=== PATIENT | female | born 1980 | race Caucasian/White ===

== ENCOUNTER → 2017-08-26 | Outpatient (CLI) | payer OTHER | LOC: FIMAGING 09:21 | PROVIDERS: ATTEND Obstetrics & Gynecology | DX: O09.512 Supervision of elderly primigravida, second trimester (principal); O35.8XX0 Maternal care for other (suspected) fetal abnormality and damage, not applicable or unspecified; Z3A.20 20 weeks gestation of pregnancy; Z20.828 Contact with and (suspected) exposure to other viral communicable diseases ==

== ENCOUNTER → 2017-11-04 | Outpatient (CLI) | payer OTHER | LOC: FIMAGING 08:44 | PROVIDERS: ATTEND Obstetrics & Gynecology | DX: O09.513 Supervision of elderly primigravida, third trimester (principal); Z3A.30 30 weeks gestation of pregnancy ==

== ENCOUNTER 2017-12-07 08:27 | Emergency (ER) | payer OTHER ==
[2017-12-07 08:36] VITALS: BP 117/77; PULSE 75; RESP 16; TEMP 97.5; O2SAT 96
--- NOTE | 2017-12-07 08:58 | EDPHY ---
H & P Stated Complaint: R eye pain Time Seen by Provider: 12/07/17 08:57 Source: Patient Exam Limitations: No limitations - Personal History LMP (Females 10-55): EDC: 01/13/18 Current Tetanus Diphtheria and Acellular Pertussis (TDAP): Yes - Medical/Surgical History Hx Asthma: No Hx Chronic Respiratory Disease: No Hx Diabetes: No Hx Cardiac Disease: No Hx Renal Disease: No Hx Cirrhosis: No Hx Alcoholism: No Hx HIV/AIDS: No Hx Splenectomy or Spleen Trauma: No Other PMH: right eye ulcer, - Social History Smoking Status: Never smoked Constitutional: Initial Vital Signs Temperature (C) 36.4 C 12/07/17 08:33 Heart Rate 75 12/07/17 08:33 Respiratory Rate 16 12/07/17 08:33 Blood Pressure 117/77 12/07/17 08:33 O2 Sat (%) 96 12/07/17 08:33 O2 Delivery Mode Room Air Allergies/Adverse Reactions: No Known Allergies Allergy (Unverified 09/12/15 03:57) Home Medications: Medication Instructions Recorded Hydrocodone/APAP 5/325 [Doniphan 1 - 2 tab PO Q4-6PRN PRN #20 tab 09/12/15 5/325 (*)] prednisoLONE ACET 0.12% [Pred Mild 2 drops OP QID #1 opht.btl 12/07/17 0.12%] Medical Decision Making ED Course/Re-evaluation: CHIEF COMPLAINT: Eye pain HISTORY OF PRESENT ILLNESS: The patient is a 37-year-old female, currently 8 months , presenting with acute eye pain that started 1 week ago. The patient took out her contacts and immediately felt like she left a piece of a contact in her eye. She woke up with right eye pain and wore her glasses. The next day she developed photophobia. She was seen at an Urgent Care and diagnosed with pink eye. She was started on Gentamicin, but has not seen any improvement over the past 4 days. Her right eye feels dry in one spot. She denies discharge. She has not worn her contacts since onset of pain. REVIEW OF SYSTEMS: A 10 point review of systems was performed and is negative with the exception of the elements mentioned in the history of present illness. PHYSICAL EXAM: HR, BP, O2 Sat, RR. Temp noted General Appearance: Alert, well hydrated, appropriate, and non-toxic appearing. Head: Atraumatic without scalp tenderness or obvious injury Visual Acuity: Noted from Nurse's notes. Pupils: PERRLA, EOMI, no nystagmus, no trauma, Injection. Lids: No edema or swelling. Lid margins are injected. Skin: No proptosis, no periorbital erythema or swelling, no vesicles. Conjunctivae: Injected, not icteric, no discharge. Cornea: Exam with slit lamp and fluorescein shows superficial punctate keratopathy, no abrasion. Anterior chamber: Normal, no hyphema or hypopyon. Posterior Chamber: No papilledema or hemorrhages. Past medical history: 8 months . Past surgical history: Denies. Family history: Noncontributory. Social history: DIFFERENTIAL DIAGNOSIS: Includes but is not limited to superficial punctate keratopathy, corneal abrasion, conjunctivitis. MEDICAL DECISION MAKING: The patient presents with right eye irritation for the past week. She was started on Gentamicin and has not seen any improvement. She continues to have photophobia and eye pain. On fluoroscopic examination she has superficial punctate keratopathy likely secondary to the Gentamicin. Corneal and conjunctival irritation, no sign of infection. There is no ulcer or corneal abrasion. I will start the patient on [] and have her follow up with the infection control coordinator Program Developer or her Motor Adjuster. Departure - Departure Disposition: Home, Routine, Self-Care Clinical Impression: Superficial keratitis Qualifiers: Laterality: right Qualified Code(s): H16.101 - Unspecified superficial keratitis, right eye Condition: Good Instructions: Keratitis (ED) Additional Instructions: Use the Prednisolone eye drops as directed. Stop using the Gentamicin drops. You have been referred to the infection control coordinator Program Developer. You should call tomorrow to arrange follow up or follow up with your Motor Adjuster. Referrals: Giselle Perez MD [Primary Care Provider] - As per Instructions Prem David MD [Medical Doctor] - As per Instructions (Ophthalmology) Prescriptions: prednisoLONE ACET 0.12% [Pred Mild 0.12%] 2 drops OP QID #1 opht.btl Report Scribed for: Silvestre Whitley Report Scribed by: Dyan Miranda Date of Report: 12/07/17 Time of Report: 09:11
[2017-12-07] MEDS ORDERED: PROPARACAINE 0.5% 15 ML OPHT DROP ONE (09:08)
[2017-12-07] MEDS ORDERED: FLUORESCEIN SODIUM 1 MG STRIP OP ONE (09:08)
== END 2017-12-07 09:20 | disposition home or self-care (01) ==
DX: O99.89 Other specified diseases and conditions complicating pregnancy, childbirth and the puerperium (principal); H16.101 Unspecified superficial keratitis, right eye; Z3A.00 Weeks of gestation of pregnancy not specified

== ENCOUNTER → 2017-12-16 | Outpatient (CLI) | payer OTHER | LOC: FIMAGING 14:30 | PROVIDERS: ATTEND Obstetrics & Gynecology | DX: O09.513 Supervision of elderly primigravida, third trimester (principal); O35.8XX0 Maternal care for other (suspected) fetal abnormality and damage, not applicable or unspecified; Z3A.36 36 weeks gestation of pregnancy ==

== ENCOUNTER 2018-01-07 15:13 | Inpatient (IN) | payer OTHER ==
[2018-01-07] MEDS ORDERED: EPSOM SALT 454 GM TP PRN (15:30)
[2018-01-07] MEDS ORDERED: TERBUTALINE SULFATE 1 MG/ML VIAL IV PRN (15:30)
[2018-01-07] MEDS ORDERED: OXYTOCIN 20 UNIT in LR 1,000 ML IV PRN (15:30)
[2018-01-07] MEDS ORDERED: LR 1,000 ML IV PRN (15:30)
[2018-01-07] MEDS ORDERED: MISOPROSTOL 200 MCG TAB PR PRN (15:30)
[2018-01-07] MEDS ORDERED: OLIVE OIL 118 ML BTL MISC PRN (15:30)
[2018-01-07] MEDS ORDERED: LIDOCAINE 1% 300 MG/30 ML SDV ONE (17:04)
[2018-01-07] MEDS ORDERED: OXYTOCIN 10 UNIT/ML VIAL ONE (17:05)
[2018-01-07] MEDS ORDERED: OLIVE OIL 118 ML BTL ONE (17:05)
[2018-01-07] MEDS ORDERED: TERBUTALINE SULFATE 1 MG/ML VIAL ONE (17:05)
[2018-01-07] MEDS ORDERED: AMMONIA AROMATIC 1 EACH AMP IH ONE (17:05)
[2018-01-07 17:17] LABS: PLATELET COUNT 184 10^3/uL (150-400)
--- NOTE | 2018-01-07 20:09 | PREANESOB ---
Obstetric Pre-Anesthesia Info - General Info Proposed Procedure: Labor and delivery probably with pitocin. : 1 Para: 0 HERVE: 01/13/18 Gestational Age: 39 week(s) and 1 day(s) - Info Status: Full Term Monitors: External FHR Baseline (bpm): 130 FHR Pattern: Reassuring - Labor Status Cervical Dilation per last OB SVE: 1 Pitocin: Planned Indications for Labor Analgesia: Induction of Labor, Pain Control Labor Epidural: Proposed Anesthesia ROS: Back surgery for scoliosis. Allergies/Adverse Reactions: Allergy/AdvReac Type Severity Reaction Status Date / Time No Known Allergies Allergy Unverified 09/12/15 03:57 Home Medications: Medication Instructions Recorded Herbals/Supplements -Info Only 01/07/18 Iron 01/07/18 Vit27&Calcium/Iron/FA 1 each PO DAILY 01/07/18 [ Rx 1 Tablet (RX)] Visit Medications: Generic Name Dose Route Start Last Admin Trade Name Freq PRN Reason Stop Dose Admin Lactated Ringer's 1,000 mls @ 0 mls/hr 01/07/18 15:30 Lr IV 01/08/18 15:29 PRN PRN SEE PROTOCOL CONDITIONS Protocol Per Protocol Oxytocin 20 unit/ Lactated 1,002 mls @ 150 mls/hr 01/07/18 15:30 Ringer's IV PRN PRN Post- bleeding Ibuprofen 600 mg 01/07/18 15:30 Motrin PO 07/06/18 15:29 Q6HRS PRN post , inflammation Magnesium Sulfate 454 gm 01/07/18 15:30 Epsom Salt TP 07/06/18 15:29 Q1H PRN perineal discomfort Misoprostol 800 - 1,000 mcg 01/07/18 15:30 Cytotec VT ONCE PRN Vaginal Atony/Bleeding Foster Oil 118 ml 01/07/18 15:30 Sweet Oil MISC 07/06/18 15:29 ONCE PRN perineal massage Terbutaline Sulfate 0.25 mg 01/07/18 15:30 Brethine IV 07/06/18 15:29 ONCE PRN Tachysystole Discontinued Medications Generic Name Dose Route Start Last Admin Trade Name Freq PRN Reason Stop Dose Admin Ammonia (Aromatic Spirit) Confirm 01/07/18 17:05 Ammonia Aromatic Administered 01/07/18 17:06 Dose 1 each IH .STK-MED ONE Lidocaine HCl Confirm 01/07/18 17:04 Lidocaine Hcl 1% Administered 01/07/18 17:05 Dose 300 mg .ROUTE .STK-MED ONE Foster Oil Confirm 01/07/18 17:05 Sweet Oil Administered 01/07/18 17:06 Dose 118 ml .ROUTE .STK-MED ONE Oxytocin Confirm 01/07/18 17:05 Pitocin Administered 01/07/18 17:06 Dose 30 unit .ROUTE .STK-MED ONE Terbutaline Sulfate Confirm 01/07/18 17:05 Brethine Administered 01/07/18 17:06 Dose 1 mg .ROUTE .STK-MED ONE - Anesthesia History Response to Local Anesthetics: Normal Anesthesia & Operative History: No Prior Problems Family Anesthesia History: Negative - Social History Substance Use/Abuse: Denies - Vital Signs Blood Pressure: 109/64 Heart Rate: 75 Height/Weight (Nursing): Height 167.64 cm Weight 72.121 kg - Focused Exam Neck exam: FROM Mallampati Score: Class 1 Mouth exam: normal dental/mouth exam Pulmonary: no respiratory distress Cardiovascular: regular rate and rhythym Labs: 01/07/18 16:45 Patient ABO/Rh O POSITIVE 01/07/18 16:45 - Plan Anesthetic Plan: Epidural Consent Signed and on Chart: Yes Patient/Guardian Understands and Agrees to Plan: Yes
[2018-01-07] MEDS ORDERED: LR 500 ML IV PRN (20:40)
[2018-01-07] MEDS ORDERED: OXYTOCIN 30 UNIT in NS 500 ML IV SCH (20:45)
--- NOTE | 2018-01-07 21:50 | GHP ---
[f rep st] PREOP HISTORY AND PHYSICAL DATE OF ADMISSION: 01/07/2018 HISTORY UPON ADMISSION: The patient is a 37-year-old G1, P0, at 39 weeks and 1 day with an estimated due date of 01/13/2018, who presented to Labor and Delivery for slightly decreased movement af ter spontaneous rupture of membranes at approximately 11:45 a.m. The patient was noting irregular co ntractions after an acupuncture treatment this morning; however, very mild. The patient had spontane ous rupture with clear fluid and has had a negative GBS culture. After presentation to Labor and [facility], the monitoring was a category 1 tracing. The patient opted to stay, awaiting onset of e nacho labor. She opted to have a repeat acupuncture treatment, which was performed at approximately 5 :00 p.m. The patient has been hopeful for spontaneous onset of contractions, but really has not had any real contraction pattern to speak of since admission. A thorough discussion with the patient abo ut options as to getting Pitocin for augmentation versus oral Cytotec versus continuing to wait and d o acupuncture and nipple stimulation. The patient has intended on having an epidural, and she had a consultation with Dr. Octavio Tavarez about epidural placement and the potential variabilities, as th e patient has had back surgery and has an existing yane in her spine. The patient is not interested i n epidural placement at this time, but might consider replacement prior to dosing of the epidural to avoid having to have it placed during intense labor. The patient ate dinner and now is requesting Pi tocin stimulation of labor. COURSE: The patient has transferred to [facility] at 32 weeks' gestation from [facility]. She had thorough care with their office prior to transfer. The patient had be en noted to have dilation of the right renal pelvis and had evaluation with Maternal- Medi cine. A followup ultrasound at 31 weeks' gestation had shown resolution of the dilated renal pelvis, and both were measuring normal. It was recommended to have a 4-week followup, and this was performe d on December 17. The right renal pelvis at that time was severely dilated, with a measurement of 1 2 mm. The specialist recommended that the pediatricians get imaging early after delivery and referra l to a urologist if the dilation persists. They recommended a right ultrasound 2-4 weeks after . The followup measurements were also performed, and the estimated weight was the 78th percent ile. There was a fundal placenta and normal fluid noted. The patient had had Zika virus exposure in March of 2017, and there was no evidence of Zika effects on the anatomy. The patient has a hist ory of anxiety, but did not have significant issues through the and had not initiated any m edications. LABORATORIES: Maternal blood type O-positive, with negative antibody screen. RPR nonreacti ve. Rubella immune. Hepatitis B surface antigen negative. HIV negative. Cystic fibrosis, spinal m uscular atrophy, and Fragile X all negative. Urinalysis and culture negative. Pap smear negative. Verifi testing was negative. MSAFP was negative. One-hour Glucola was elevated, with a normal 3-mo r GTT. Hematocrit showed mild anemia at 34%. GBS culture testing was negative. PAST MEDICAL HISTORY: Positive HPV with a colposcopy in the past from abnormal Pap smears. 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 History of scoliosis with a "yane in her back," but no grayson gical reports or recent followup. History of anxiety, treated with Lexapro and Ativan in the past, b ut no recent medication. PAST SURGICAL HISTORY: Surgery at age 13 due to the scoliosis, with a yane placed. ALLERGIES: The patient has no known drug allergies. CURRENT MEDICATIONS: Only vitamins, omega-3, DHEA, and iron supplement daily. SOCIAL HISTORY: The patient is and lives with her . The patient is a nonsmoker. No alcohol or drug use. PHYSICAL EXAMINATION: GENERAL: Upon admission, the patient is a well-developed, well-nourished whit e female, in no physical distress. VITAL SIGNS: The patient is afebrile and vital signs normal. Se e nursing documentation for full details. LUNGS: Clear to auscultation bilaterally. CARDIOVASCULAR : Regular rate and rhythm. ABDOMEN: heart tone monitoring revealed a category 1 tracing with a baseline in the 130s, with good variability and accelerations. No decelerations noted. Rare cont ractions noted. PELVIC: Exam has been deferred since the patient has been at the hospital. She is continuing to have abundant leakage of clear fluid. The patient had a pelvic exam at [facility] this morning prior to rupture of membranes and was fingertip dilated with a long cervix, with v ertex presentation. EXTREMITIES: Nontender. No edema. ASSESSMENT: Intrauterine at 39 weeks and 1 day, spontaneous rupture of membranes at approx imately 11:45 a.m. Group B streptococcus negative. No current labor. PLAN: The patient has opted to have Pitocin induction. She will have epidural placement when ready. /[id number]/MODL
[2018-01-07] MEDS ORDERED: BUPIVACAINE 0.25% 30 ML SDV ONE (23:40)
[2018-01-07] MEDS ORDERED: PHENYLEPHRINE HCL 100 MCG/ML SYR ONE (23:41)
[2018-01-07] MEDS ORDERED: fentaNYL 100 MCG/2 ML INJ ONE (23:41)
--- NOTE | 2018-01-07 23:47 | OBPROG ---
Labor Progress Note Assessment/Plan: Assessment: IUP at 39w1d SROM approx 12 hrs GBS neg pitocin induction scoliosis with yane in back Plan: pt now feeling increased pain and requesting ALDAIR 01/07/18 23:43 Subjective/Intrapartum Course: 01/07/18 23:46 pt has been on low pitocin and gradually feeling increasing discomfort - now rates pain 7/10 and request ALDAIR. cx 1-2//-1 Objective: 01/07/18 16:45 Patient ABO/Rh O POSITIVE 01/07/18 16:45 Temp Pulse Resp BP Pulse Ox 75 109/64 01/07/18 20:09 01/07/18 20:09 - SVE Dilation (cm): 2 Effacement (%): 90 Station: -1 Membranes: SROM Amniotic Fluid Color: Clear - Contraction Pattern Assessment Current Contraction Pattern: Regular (q 2-3 min on 5 mu/min pit - now reduced to 2 mu/min until comf with ALDAIR) - FHR Assessment Talavera FHR (bpm): 130 FHR Pattern Variability: Moderate FHR Category: 1 Oxytocin Orders Assessment - Pre-Induction/Augmentation Assessment Gestational Age: 39 week(s) and 1 day(s) ICD10 Worksheet Patient Problems: Problems Problem Status Onset Prolonged spontaneous rupture of membranes Acute - ICD10 Problem Qualifiers (1) Prolonged spontaneous rupture of membranes
[2018-01-08] MEDS ORDERED: FENT2MCG/ML&BUP0.1% 1 EA, fentaNYL 200 MCG, BUPIVACAINE 0.5% 20 ML in NS 100 ML IV SCH (00:30)
[2018-01-08] MEDS ORDERED: ONDANSETRON 4 MG/2 ML VIAL IVP PRN (00:37)
[2018-01-08] MEDS ORDERED: PHENYLEPHRINE HCL 100 MCG/ML SYR IVP PRN (00:37)
[2018-01-08] MEDS ORDERED: FENT2MCG/ML&BUP0.1% 1 EA, fentaNYL 200 MCG, BUPIVACAINE 0.5% 20 ML in NS 100 ML EP SCH (01:00)
[2018-01-08] MEDS ORDERED: LR 500 ML IV SCH (01:00)
[2018-01-08] MEDS ORDERED: fentaNYL 2MCG/ML/BUP 0.1% RTU 100 ML EP SCH (01:00)
[2018-01-08] MEDS ORDERED: NS EP SCH (07:00)
[2018-01-08] MEDS ORDERED: FENTANYL EP SCH (07:00)
[2018-01-08] MEDS ORDERED: BUPIVACAINE 0.5% EP SCH (07:00)
[2018-01-08] MEDS ORDERED: OLIVE OIL 118 ML BTL ONE (07:20)
[2018-01-08] MEDS ORDERED: LIDOCAINE 1% 300 MG/30 ML SDV ONE (07:20)
[2018-01-08] MEDS ORDERED: ceFAZolin 2 GM/SWFI 2 GM/20 ML SYR IVP ONE (10:04)
[2018-01-08] MEDS ORDERED: HYDROCORTISONE 0.5% CREAM TP PRN (11:52)
[2018-01-08] MEDS ORDERED: SIMETHICONE 80 MG TAB CHEW PO PRN (11:52)
[2018-01-08] MEDS ORDERED: ACETAMINOPHEN 325 MG TAB PO PRN (11:52)
[2018-01-08] MEDS: IBUPROFEN 600 MG TAB PO PRN ×3 (11:59→23:40)
--- NOTE | 2018-01-08 12:01 | OBDEL ---
Info Type: Vaginal Presentation at Delivery: Vertex L&D Analgesia/Anesthesia Type: Epidural GBS+: No Intrapartum Medications: Generic Name Dose Route Start Last Admin Trade Name Freq PRN Reason Stop Dose Admin Lactated Ringer's 1,000 mls @ 0 mls/hr 01/07/18 15:30 01/07/18 20:56 Lr IV 01/08/18 15:29 1,000 mls PRN PRN Administration SEE PROTOCOL CONDITIONS Protocol Per Protocol Oxytocin 30 unit/ Sodium 503 mls @ 0 mls/hr 01/07/18 20:45 01/07/18 20:56 Chloride IV 07/06/18 20:44 503 mls CONT KHALIF Administration Protocol Per Protocol Discontinued Medications Generic Name Dose Route Start Last Admin Trade Name Freq PRN Reason Stop Dose Admin Cefazolin Sodium 2 gm in 20 mls @ 200 mls/hr 01/08/18 10:04 01/08/18 10:17 Cefazolin Syringe IVP 01/08/18 10:09 20 mls ONCALL ONE Administration Protocol - Hospital Course Intrapartum: 01/07/18 23:46 pt has been on low pitocin and gradually feeling increasing discomfort - now rates pain 7/10 and request ADLAIR. cx 1-2/90/-1 Vaginal Delivery - Delivery Provider Delivery Physician/CNM: Lucretia Rocha Proctoring Provider: Radha Shultz - Labor and Delivery Onset of Contractions Date: 01/07/18 Onset of Contractions Time: 21:45 Onset of Contractions Type: Augmented Rupture of Membranes Date: 01/07/18 Rupture of Membranes Time: 11:45 Rupture of Membranes Type: Spontaneous Amniotic Fluid Color: Clear Dilation Complete Date: 01/08/18 Dilation Complete Time: 05:43 Placenta Delivery Date: 01/08/18 Placenta Delivery Time: 10:04 (manual removal, complete and intact. US confirmed no retained POCs. ) Total Hours of Labor: 12 Laceration: 1st Degree Repair: 3-0, Vicryl Vaginal Sponge Count Correct: Yes Vaginal Needle Count Correct: Yes Data HERVE: 01/13/18 Gestational Age: 39 week(s) and 2 day(s) Talavera Delivery Date: 01/08/18 Delivery Time: 09:03 Sex of Infant: Female Score (1 Min): 8 Score (5 Min): 9 ICD10 Worksheet Patient Problems: Problems Problem Status Onset First degree perineal laceration Acute Prolonged spontaneous rupture of membranes Acute Retained placenta Acute (spontaneous vaginal delivery) Acute - ICD10 Problem Qualifiers (1) (spontaneous vaginal delivery) (2) First degree perineal laceration (3) Retained placenta
[2018-01-08] MEDS: HYDROCODONE/APAP 5/325 TAB PO PRN ×3 (15:18→23:41)
[2018-01-09] MEDS: HYDROCODONE/APAP 5/325 TAB PO PRN ×5 (04:16→22:41)
[2018-01-09] MEDS: IBUPROFEN 600 MG TAB PO PRN ×3 (08:40→22:41)
[2018-01-09] MEDS: DOCUSATE SODIUM 100 MG CAP PO PRN ×2 (08:40→21:17)
--- NOTE | 2018-01-09 13:44 | OBPP ---
Progress Note Assessment/Plan: PPD1 s/p requiring manual extraction of placenta. EBL 400cc. * Doing great, no acute issues. Routine cares. * Received one dose of Ancef after delivery due to manual extraction, afebrile overnight. No further doses ordered. * going okay - working with . * Renal pyelectasis antepartum - Urology/MFM recommended renal US 2-4 wks after delivery. * O pos, Rubella immune. * Likely dc home tomorrow. Subjective/ Course: Doing well, pain well controlled, minimal lochia, no F/C. a little miya overnight, but working with now. Objective: 01/07/18 16:45 Patient ABO/Rh O POSITIVE 01/07/18 16:45 Temp Pulse Resp BP Pulse Ox 36.2 C 68 15 103/67 97 01/09/18 08:05 01/09/18 08:05 01/09/18 08:05 01/09/18 08:05 01/09/18 08:05 Uterine Position/Fundal Height: At Umbilicus Uterine Tone: Firm Physical Exam - Physical Exam Neuro/Psych: alert, normal mood/affect
[2018-01-09 20:22] VITALS: RESP 16
[2018-01-10] MEDS: DOCUSATE SODIUM 100 MG CAP PO PRN (08:34)
[2018-01-10] MEDS: IBUPROFEN 600 MG TAB PO PRN (08:35)
[2018-01-10 09:19] VITALS: BP 123/76; PULSE 52; TEMP 98; O2SAT 100
--- NOTE | 2018-01-10 11:34 | OBPP ---
Progress Note Assessment/Plan: Assessment: PPD 2 s/p with manual extraction of placenta Plan: D/C home 01/07/18 23:43 01/10/18 11:29 Subjective/ Course: Doing well, pain well controlled, minimal lochia, no F/C. a little miya overnight, but working with now. 01/10/18 11:34 Pt doing well. Working on BF - also pumping. urinating fine. bld is light. mod cramps but [place] with ibu - used Geismar last noc but doesn't feel needed anymore. Objective: 01/07/18 16:45 Patient ABO/Rh O POSITIVE 01/07/18 16:45 Temp Pulse Resp BP Pulse Ox 36.7 C 52 L 16 123/76 H 100 01/10/18 08:00 01/10/18 08:00 01/10/18 08:00 01/10/18 08:00 01/10/18 08:00 Uterine Position/Fundal Height: Umbilicus -1 Uterine Tone: Firm Physical Exam - Physical Exam Abdomen: non-tender, soft, other (FF at umb -1) Extremities: non-tender, pedal edema (minimal) Skin: normal color, warm/dry Neuro/Psych: alert, normal mood/affect
--- NOTE | 2018-01-10 11:39 | OBGCSDC ---
General Delivery Information - General Info : 1 Para: 1 Abortions: 0 Type: Vaginal L&D Analgesia/Anesthesia Type: Epidural Admission Date: 01/07/18 Labs: Patient ABO/Rh O POSITIVE 01/07/18 16:45 Hct 32.6 % (38.0-47.0) L 01/07/18 16:45 - Hospital Course Intrapartum: 01/07/18 23:46 pt has been on low pitocin and gradually feeling increasing discomfort - now rates pain 7/10 and request ALDAIR. cx 1-2//-1 : Doing well, pain well controlled, minimal lochia, no F/C. a little miya overnight, but working with now. 01/10/18 11:34 Pt doing well. Working on BF - also pumping. urinating fine. bld is light. mod cramps but [place] with ibu - used Taylor last noc but doesn't feel needed anymore. Vaginal - Delivery Provider Delivery Physician/CNM: Lucretia Rocha - Diagnosis Labor: Augmented Rupture of Membranes Type: Spontaneous Amniotic Fluid Color: Clear Laceration: 1st Degree Repair: 3-0, Vicryl Sunset Data HERVE: 01/13/18 Gestational Age: 39 week(s) and 4 day(s) Talavera Delivery Date: 01/08/18 Delivery Time: 09:03 Sex of : Female Score (1 Min): 8 Score (5 Min): 9 Discharge Information - Discharge Information Condition: Good Instruction/Follow Up: Four Weeks, Six Weeks
== END 2018-01-10 12:00 | disposition home or self-care (01) | DRG 767 ==
LOC: FLD 15:13 → FOB 01-08 13:12
PROVIDERS: ADMIT Obstetrics & Gynecology; ATTEND Obstetrics & Gynecology
PROC: 3E033VJ Introduction of Other Hormone into Peripheral Vein, Percutaneous Approach (ICD-10-PCS; 2018-01-07)
PROC: 10E0XZZ Delivery of Products of Conception, External Approach (ICD-10-PCS; principal; 2018-01-08)
PROC: 0HQ9XZZ Repair Perineum Skin, External Approach (ICD-10-PCS; principal; 2018-01-08)
PROC: 10D17Z9 Manual Extraction of Products of Conception, Retained, Via Natural or Artificial Opening (ICD-10-PCS; principal; 2018-01-08)
DX: O42.02 Full-term premature rupture of membranes, onset of labor within 24 hours of rupture (principal); O72.0 Third-stage hemorrhage; O70.0 First degree perineal laceration during delivery; Z98.890 Other specified postprocedural states; Z3A.39 39 weeks gestation of pregnancy; Z37.0 Single live birth
CPT/HCPCS: J0690; J2370; J2590; J3010; J3105

== ENCOUNTER → 2018-09-29 | Outpatient (CLI) | payer OTHER | LOC: FIMAGING 09:25 | PROVIDERS: ATTEND Obstetrics & Gynecology | DX: O09.521 Supervision of elderly multigravida, first trimester (principal); Z3A.12 12 weeks gestation of pregnancy ==

== ENCOUNTER → 2018-11-19 | Outpatient (CLI) | payer OTHER | LOC: FIMAGING 07:32 | PROVIDERS: ATTEND Obstetrics & Gynecology | DX: O09.522 Supervision of elderly multigravida, second trimester (principal) ==

== ENCOUNTER → 2019-01-07 | Outpatient (CLI) | payer OTHER | LOC: FIMAGING 09:22 | PROVIDERS: ATTEND Obstetrics & Gynecology | DX: O09.522 Supervision of elderly multigravida, second trimester (principal); Q27.0 Congenital absence and hypoplasia of umbilical artery; Z3A.26 26 weeks gestation of pregnancy ==

== ENCOUNTER → 2019-02-18 | Outpatient (CLI) | payer OTHER | LOC: FIMAGING 09:15 | PROVIDERS: ATTEND Obstetrics & Gynecology | DX: O09.523 Supervision of elderly multigravida, third trimester (principal); Z3A.32 32 weeks gestation of pregnancy ==

== ENCOUNTER 2019-03-23 07:45 | Day surgery (SDC) | payer OTHER ==
--- NOTE | 2019-03-22 18:34 | PDGENHP ---
History and Physical - Chief Complaint Transverse presentation - here for external cephalic version attempt - History of Present Illness 38 at 37w2d (on 03/23/19) by LMP c/w 7 wk US, with transverse presentation in office last week and today in office (03/22/19). Desires attempt at External Cephalic Version, after thorough counseling B/R/A in office today. FOC = Abilio Update - today, 03/23/19 - last ate before midnight, but had water on her way here - last at 0630. Preg c/b: AMA > 40: neg NIPT and MFM US single umbilical artery: normal growth, 52%ile at 36 wk short preg interval: 12/2017 c/b retained placenta Anemia: hct 32 at 28wk, 36 at 34 wk, on iron hx anxiety, and pp anxiety with hx of meds in past labs: O pos Rub Imm GBS neg Rest of std labs wnl POB: 01/[birth year] at 39w2d, female 6#11oz, epidural, 1s deg lac, retained placenta - "Flora" at [facility] with CNMs Goldstein History Information - Allergies/Home Medication List Allergies/Adverse Reactions: No Known Allergies Allergy (Unverified 09/12/15 03:57) Home Medications: Iron 1 cap PO DAILY 01/07/18 [Last Taken 01/06/18] Vit27&Calcium/Iron/FA [] 1 each PO DAILY 01/07/18 [Last Taken 01/06/18] I have personally reviewed and updated: family history, medical history, social history, surgical history Past Medical History: scoliosis - but had epidural with P1. Hx anxiety - was on Lexapro and Ativan in past - Surgical History Additional surgical history: yane for scoliosis age 13. wisdom teeth - Family History Positive for: cancer (MGM- brain, PGF - lung), diabetes type II (MGM) Additional family history: MAunt - DM1, thyroid d/o. MCousin - DM1. mat side - alcoholism. M - depression - Social History Smoking Status: Former smoker Alcohol Use: None Drug Use: None Review of Systems Review of Systems: ROS: 10pt was reviewed & negative except for what was stated in HPI & below Physical Exam Physical Exam: US confirms vertex maternal left upper quadrant, with back down. Subjectively normal amount of fluid. 36.6 16 64 106/72 FHR 135 reactive, Cat 1 toco - no contractions Constitutional: no apparent distress, appears nourished Eyes: PERRL, anicteric sclera Ears, Nose, Mouth, Throat: moist mucous membranes, hearing normal, ears appear normal Cardiovascular: regular rate and rhythym, no murmur, rub, or gallop Respiratory: no respiratory distress, no rales or rhonchi, clear to auscultation Gastrointestinal: normoactive bowel sounds, other (fundus soft, NT, c/w term ) Genitourinary: no bladder fullness Skin: warm, normal color Musculoskeletal: full muscle strength Neurologic: AAOx3, sensation intact bilaterally Psychiatric: interacting appropriately Lymph, Heme, Immunologic: no cervical LAD Assessment & Plan Assessment: 40 at 37w2d with transverse, back down presentation this morning. Will attempt External Cephalic Version. Written informed consent obtained. Shyanne Franco MD, FACOG
[~2019-03-23 07:45] MED LIST: OLIVE OIL 118 ML BTL MISC ONE; TERBUTALINE SULFATE 1 MG/ML VIAL IV ONE; TERBUTALINE SULFATE 1 MG/ML VIAL ONE
[2019-03-23 08:19] LABS: PLATELET COUNT 175 10^3/uL (150-400)
--- NOTE | 2019-03-23 08:59 | POSTOPPROG ---
Post Op Note Date of Operation: 03/23/19 Surgeon: Shyanne Franco Nursing Unit Coordinator: Lucina Ramires [facility] Anesthesiologist: circulation tender Pre-op Diagnosis: transverse presentation Post-op Diagnosis: cephalic presentation Indication: transverse presentation at 37w2d, multip Procedure: External cephalic version Findings: converted to cephalic, with hand presenting Inf/Abcess present in the surg proc area at time of surgery?: No Total fluids administered: none Complications: Complications: none Procedure: Written informed consent obtained. 0.25mg terbutaline IV given. FHR confirmed to be 150 immediately prior to procedure. Pressure placed on abdomen and fetus rotated in a backward somersault. Successful with first attempt. arm and fluid is presenting, then vertex. Pt sat up and will be monitored for at least on hour and then position rechecked prior to discharge home. Shyanne Franco MD, FACOG
--- NOTE | 2019-03-23 10:30 | SOAPPROG ---
SOAP Progress Note Assessment/Plan: Assessment: 40 at 37w2d, s/p ECV - successful. Currently compound cephalic/foot presentation. Reassuring monitoring. DC home, reviewed kick counts and labor precautions. Keep appt in office in 2 days - NST and fluid check (recheck position then too) . Shyanne Franco MD, FACOG 03/23/19 10:26 Subjective: Pt comfortable. NO contractions, LOF, or VB. + FM. Objective: Laboratory Results 03/23/19 07:30 FHR 140 reactive, Cat 1 toco - no contractions US - compound cephalic presentation - vertex and foot - fetus appears piked with buttocks in maternal right upper quadrant currently. gen - pleasant, nad - Time Spent With Patient Time Spent With Patient: 10 MIN - Pending Discharge Pending Discharge Within 24 Hours: Yes Pending Discharge Within 48 Hours: Yes Pending Discharge Date: 03/24/19 Pending Discharge Time: 11:00 ICD10 Worksheet Patient Problems: Problems Problem Status Onset First degree perineal laceration Acute Prolonged spontaneous rupture of membranes Acute Retained placenta Acute (spontaneous vaginal delivery) Acute manual extraction of placenta Acute
--- NOTE | 2019-04-06 20:01 | OBDEL ---
Info Type: Vaginal Presentation at Delivery: Vertex L&D Analgesia/Anesthesia Type: Epidural GBS+: No Intrapartum Medications: Discontinued Medications Generic Name Dose Route Start Last Admin Trade Name Flynn PRN Reason Stop Dose Admin Terbutaline Sulfate 0.25 mg 03/23/19 07:43 03/23/19 08:30 Brethine IV 03/23/19 07:44 0.25 mg ONCALL ONE Administration Indications for Delivery: Elective Vaginal Delivery - Delivery Provider Delivery Physician/CNM: Shyanne Franco - Labor and Delivery Onset of Contractions Date: 04/06/19 Onset of Contractions Time: 16:50 Onset of Contractions Type: Induced Rupture of Membranes Date: 04/06/19 Rupture of Membranes Time: 16:50 Rupture of Membranes Type: Artificial Amniotic Fluid Color: Clear Dilation Complete Date: 04/06/19 Dilation Complete Time: 19:29 Placenta Delivery Date: 04/06/19 Placenta Delivery Time: 19:46 Total Hours of Labor: 2 Non-surgical Procedures: Amniotomy Laceration: Other (Specify) (superficial abrasions, hemostatic, no repair indicated) Vaginal Sponge Count Correct: Yes Vaginal Needle Count Correct: Yes Vaginal Sweep Performed: Yes EBL: 300 Delivery Events: None Delivery Comment: Elective induction of labor with pitocin, then AROM, epidural, then became completely dilated about 2.5 hours after AROM and 2 hours after epidural placement. Pushed with 3 contractions, with delivery of vertex, ELHAM, over intact perineum. No nuchal cord. Bulb suctioned on the perineum. No dystocia noted with easy delivery of body and baby went right to maternal abdomen at 1942. Cord clamping was delayed for just over 1 minute. Cord clamped and cut. Placenta delivered spontaneously at 1946 and appeared complete and intact. Inspection revealed a very superficial left periurethral abrasion and superficial perineum abrasion, both hemostatic, so no repair indicated. Fundal massage performed, and clots removed from lower uterine segment. Fundus firm. EBL 300. Infant and patient left in room stable with RN. Shyanne Franco MD, FACOG - Medications Labor Augmentation/Induction Methods Used: Pitocin Labor Augmentation/Induction Indication: Elective Operative Report - Delivery Surgeon: Shyanne Franco Data HERVE: 04/11/19 Gestational Age: 39 week(s) and 2 day(s) Talavera Delivery Date: 04/06/19 Delivery Time: 19:42 ("[place]") Sex of Infant: Male Score (1 Min): 8 Score (5 Min): 9 Shoulder Dystocia Time Head Delivered: 19:42 Time Body Delivered: 19:42 ICD10 Worksheet Patient Problems: Problems Problem Status Onset Encounter for elective induction of labor Acute First degree perineal laceration Acute Multigravida of advanced maternal age Acute Oligohydramnios in third trimester Acute atony of uterus with hemorrhage Acute Prolonged spontaneous rupture of membranes Acute Retained placenta Acute S/P dilatation and curettage Acute (spontaneous vaginal delivery) Acute Spontaneous vaginal delivery Acute manual extraction of placenta Acute - ICD10 Problem Qualifiers (1) Encounter for elective induction of labor (2) Spontaneous vaginal delivery
== END 2019-03-23 10:30 | disposition home or self-care (01) ==
LOC: FOBOP 07:45
PROVIDERS: ATTEND Hospitalist
DX: O32.1XX0 Maternal care for breech presentation, not applicable or unspecified (principal); Z3A.37 37 weeks gestation of pregnancy
CPT/HCPCS: J3105

== ENCOUNTER → 2019-03-23 | Day surgery (SDC) | payer OTHER | LOC: FOBOP 06:40 ==

== ENCOUNTER 2019-04-01 16:09 | Inpatient (IN) | payer OTHER ==
[2019-04-01] MEDS ORDERED: OLIVE OIL 118 ML BTL MISC PRN (18:07)
[2019-04-01] MEDS ORDERED: OXYTOCIN/RINGERS LACTATE 1,000 ML IV PRN (18:07)
[2019-04-01] MEDS ORDERED: LR 1,000 ML IV PRN (18:07)
[2019-04-01] MEDS ORDERED: IBUPROFEN 600 MG TAB PO PRN (18:07)
[2019-04-01] MEDS ORDERED: MISOPROSTOL 200 MCG TAB PR PRN (18:07)
[2019-04-01] MEDS ORDERED: LIDOCAINE 1% 300 MG/30 ML SDV SC PRN (18:07)
[2019-04-01] MEDS ORDERED: EPSOM SALT 454 GM TP PRN (18:07)
[2019-04-01 18:32] LABS: PLATELET COUNT 209 10^3/uL (150-400)
[2019-04-01] MEDS ORDERED: LIDOCAINE 1% 300 MG/30 ML SDV ONE (19:07)
[2019-04-01] MEDS ORDERED: TERBUTALINE SULFATE 1 MG/ML VIAL ONE (19:08)
[2019-04-01] MEDS ORDERED: OLIVE OIL 118 ML BTL MISC ONE (19:08)
[2019-04-01] MEDS ORDERED: AMMONIA AROMATIC 1 EACH AMP IH ONE (19:08)
[2019-04-01] MEDS ORDERED: MISOPROSTOL 200 MCG TAB ONE (19:08)
[2019-04-01] MEDS ORDERED: OXYTOCIN 10 UNIT/ML VIAL ONE (19:08)
--- NOTE | 2019-04-01 19:26 | PDGENHP ---
History and Physical - Chief Complaint IOL for oligohydramnios - History of Present Illness 38 at 38w3d by LMP c/w 7wk US - here for IOL secondary to oligohydramnios. Was seen in office for regular monitoring for AMA > 40 status, and MVP today = 1.9cm and JANET = 3.7cm, cephalic. Good FM, no VB, no LOF. Minimal contractions. NO ssx preeclampsia. : Gaurax Preg c/b: AMA > 40: neg NIPT and MFM US single umbilical artery: normal growth, 52%ile at 36 wk short preg interval: 12/2017 c/b retained placenta Anemia: hct 32 at 28wk, 36 at 34 wk, on iron hx anxiety, and pp anxiety with hx of meds in past labs: O pos Rub Imm GBS neg Rest of std labs wnl POB: [birth year] at 39w2d, female 6#11oz, epidural, 1s deg lac, retained placenta - "Flora" at [facility] with Agustina Goldstein History Information - Allergies/Home Medication List Allergies/Adverse Reactions: No Known Allergies Allergy (Unverified 09/12/15 03:57) Home Medications: Iron 1 cap PO DAILY 01/07/18 [Last Taken 01/06/18] Vit27&Calcium/Iron/FA [] 1 each PO DAILY 01/07/18 [Last Taken 01/06/18] I have personally reviewed and updated: family history, medical history, social history, surgical history Past Medical History: scoliosis - but had epidural with P1. Hx anxiety - was on Lexapro and Ativan in past - Surgical History Additional surgical history: yane for scoliosis age 13. wisdom teeth - Family History Positive for: cancer (MGM- brain, PGF - lung), diabetes type II (MGM) Additional family history: MAunt - DM1, thyroid d/o. MCousin - DM1. mat side - alcoholism. M - depression - Social History Smoking Status: Former smoker Alcohol Use: None Drug Use: None Additional social history: to [place]. Currently [facility] Review of Systems Review of Systems: ROS: 10pt was reviewed & negative except for what was stated in HPI & below Physical Exam Physical Exam: 36.8 16 73 111/68 FHR 135 reactive, Cat 1 toco - irreg ctxns Constitutional: no apparent distress, appears nourished, not in pain Eyes: PERRL, anicteric sclera, EOMI Ears, Nose, Mouth, Throat: moist mucous membranes, hearing normal, ears appear normal Cardiovascular: regular rate and rhythym Respiratory: no respiratory distress, no rales or rhonchi Gastrointestinal: other (gravid, NT) Genitourinary: no bladder fullness Skin: warm, normal color Musculoskeletal: full muscle strength, no muscle tenderness Neurologic: AAOx3 Psychiatric: interacting appropriately, not anxious Lab Data & Imaging Review 04/01/19 18:00 WBC 7.90 10^3/uL (3.80-9.50) 04/01/19 18:00 RBC 3.81 10^6/uL (4.18-5.33) L 04/01/19 18:00 Hgb 12.7 g/dL (12.6-16.3) 04/01/19 18:00 Hct 36.6 % (38.0-47.0) L 04/01/19 18:00 MCV 96.1 fL (81.5-99.8) 04/01/19 18:00 MCH 33.3 pg (27.9-34.1) 04/01/19 18:00 MCHC 34.7 g/dL (32.4-36.7) 04/01/19 18:00 RDW 12.7 % (11.5-15.2) 04/01/19 18:00 Plt Count 209 10^3/uL (150-400) 04/01/19 18:00 MPV 10.6 fL (8.7-11.7) 04/01/19 18:00 Neut % (Auto) 66.0 % (39.3-74.2) 04/01/19 18:00 Lymph % (Auto) 26.3 % (15.0-45.0) 04/01/19 18:00 [place] % (Auto) 6.6 % (4.5-13.0) 04/01/19 18:00 Eos % (Auto) 0.4 % (0.6-7.6) L 04/01/19 18:00 Baso % (Auto) 0.3 % (0.3-1.7) 04/01/19 18:00 Nucleat RBC Rel Count 0.0 % (0.0-0.2) 04/01/19 18:00 Absolute Neuts (auto) 5.22 10^3/uL (1.70-6.50) 04/01/19 18:00 Absolute Lymphs (auto) 2.08 10^3/uL (1.00-3.00) 04/01/19 18:00 Absolute Monos (auto) 0.52 10^3/uL (0.30-0.80) 04/01/19 18:00 Absolute Eos (auto) 0.03 10^3/uL (0.03-0.40) 04/01/19 18:00 Absolute Basos (auto) 0.02 10^3/uL (0.02-0.10) 04/01/19 18:00 Absolute Nucleated RBC 0.00 10^3/uL (0-0.01) 04/01/19 18:00 Immature Gran % 0.4 % (0.0-1.1) 04/01/19 18:00 Immature Gran # 0.03 10^3/uL (0.00-0.10) 04/01/19 18:00 Patient ABO/Rh O POSITIVE 04/01/19 18:00 Antibody Screen NEGATIVE 04/01/19 18:00 Assessment & Plan Assessment: 38 at 38w4d with oligohydramnios, multiparous and favorable cervix. Will start IOL with pitocin. B/R/A of pitocin discussed. EFW 3200gm, cephalic. Shyanne Franco MD, FACOG
[2019-04-01] MEDS ORDERED: LR 500 ML IV PRN (19:46)
[2019-04-01] MEDS ORDERED: OXYTOCIN/RINGERS LACTATE 500 ML IV SCH (20:00)
[2019-04-01] MEDS ORDERED: BUPIVACAINE 0.5% 30 ML SDV ONE (21:18)
[2019-04-01] MEDS ORDERED: fentaNYL 100 MCG/2 ML INJ ONE (21:18)
[2019-04-01] MEDS ORDERED: PHENYLEPHRINE HCL 100 MCG/ML SYR ONE (21:19)
[2019-04-01] MEDS ORDERED: fentaNYL 2MCG/ML/BUP 0.1% RTU 100 ML BAG EP ONE (21:19)
[2019-04-01] MEDS ORDERED: PHENYLEPHRINE HCL 100 MCG/ML SYR IVP PRN (22:10)
[2019-04-01] MEDS ORDERED: ONDANSETRON 4 MG/2 ML VIAL IVP PRN (22:10)
[2019-04-01] MEDS ORDERED: METOCLOPRAMIDE 10 MG/2 ML VIAL IVP PRN (22:10)
--- NOTE | 2019-04-01 22:15 | PDANEPAE ---
ANE Past Medical History - Pulmonary History Hx Sleep Apnea: No - Endocrine History Hx Diabetes: No - Chronic Pain History Chronic Pain: No ANE Review of Systems Review of Systems: ANE Patient History - Allergies Allergies/Adverse Reactions: No Known Allergies Allergy (Unverified 09/12/15 03:57) - Home Medications Home Medications: Iron 1 cap PO DAILY 01/07/18 [Last Taken 01/06/18] Vit27&Calcium/Iron/FA [] 1 each PO DAILY 01/07/18 [Last Taken 01/06/18] - Smoking Hx Smoking Status: Former smoker - Alcohol Use Alcohol Use: None ANE Labs/Vital Signs - Labs Result Diagrams: 04/01/19 18:00 - Vital Signs Height: 167.64 cm Weight: 70.307 kg ANE Physical Exam - Airway Neck exam: FROM Mallampati Score: Class 1 Mouth exam: normal dental/mouth exam - Pulmonary Pulmonary: no respiratory distress - Cardiovascular Cardiovascular: regular rate and rhythym - ASA Status ASA Status: II ANE Anesthesia Plan Anesthesia Plan: epidural Urgent/Emergent Case: Shanice estevez completed preop but documented later for safe timely pt care
[2019-04-01] MEDS ORDERED: LR 500 ML IV SCH (22:30)
[2019-04-01] MEDS ORDERED: fentaNYL 2MCG/ML/BUP 0.1% RTU 100 ML EP SCH (22:30)
--- NOTE | 2019-04-02 00:15 | OBPROG ---
Labor Progress Note Assessment/Plan: Assessment: 38 at 38w5d, undergoing IOL for oligohydramnios. Comfortable with epidural. AROM just performed. Continue pitocin. Anticipate vag delivery. Shyanne Franco FACOG 04/02/19 00:12 Subjective/Intrapartum Course: Pt comfortable with epidural. 04/02/19 00:15 Objective: 04/01/19 18:00 Patient ABO/Rh O POSITIVE 04/01/19 18:00 35.8 52 82/47 gen - pleasant, NAD SVE- 3.5 / 80 / -2 BBOW - AROM performed - clear fluid - SVE Dilation (cm): 3 Effacement (%): 80 Station: -2 Membranes: AROM Amniotic Fluid Color: Clear - Contraction Pattern Assessment Current Contraction Pattern: Regular - FHR Assessment Tala[place]a FHR (bpm): 135 FHR Pattern Variability: Moderate FHR Category: 1 - Procedures Non-surgical Procedures: Amniotomy (clear) Oxytocin Orders Assessment - Pre-Induction/Augmentation Assessment Gestational Age: 38 week(s) and 4 day(s) ICD10 Worksheet Patient Problems: Problems Problem Status Onset Multigravida of advanced maternal age Acute Oligohydramnios in third trimester Acute First degree perineal laceration Acute Prolonged spontaneous rupture of membranes Acute Retained placenta Acute (spontaneous vaginal delivery) Acute manual extraction of placenta Acute - ICD10 Problem Qualifiers (1) Oligohydramnios in third trimester (2) Multigravida of advanced maternal age
[2019-04-02] MEDS ORDERED: ceFAZolin 2 GM/DEXTROSE 100 ML IV ONE (05:30)
--- NOTE | 2019-04-02 06:42 | OBDEL ---
Info Type: Vaginal Presentation at Delivery: Vertex L&D Analgesia/Anesthesia Type: Epidural GBS+: No Intrapartum Medications: Generic Name Dose Route Start Last Admin Trade Name Freq PRN Reason Stop Dose Admin Lactated Ringer's 1,000 mls @ 0 mls/hr 04/01/19 18:07 04/01/19 19:58 Lr IV 04/02/19 18:06 1,000 mls PRN PRN Administration SEE PROTOCOL CONDITIONS Protocol Per Protocol Oxytocin/Lactated Ringer's 500 mls @ 0 mls/hr 04/01/19 20:00 04/01/19 19:58 Pitocin 30 Units/Lr (Premix) IV 09/28/19 19:59 500 mls CONT KHALIF Administration Protocol Per Protocol Discontinued Medications Generic Name Dose Route Start Last Admin Trade Name Freq PRN Reason Stop Dose Admin Cefazolin Sodium/Dextrose 100 mls @ 200 mls/hr 04/02/19 05:30 04/02/19 05:59 Ancef IV 04/02/19 05:59 100 mls ONCALL ONE Administration - Hospital Course Intrapartum: Pt comfortable with epidural. 04/02/19 00:15 Indications for Delivery: Oligohydramnios (MVP 1.9cm, JANET 3.cm) Vaginal Delivery - Delivery Provider Delivery Physician/CNM: Shyanne Franco - Labor and Delivery Onset of Contractions Date: 04/01/19 Onset of Contractions Time: 21:30 Onset of Contractions Type: Induced Rupture of Membranes Date: 04/02/19 Rupture of Membranes Time: 00:05 Rupture of Membranes Type: Artificial Amniotic Fluid Color: Clear Dilation Complete Date: 04/02/19 Dilation Complete Time: 03:52 Placenta Delivery Date: 04/02/19 Placenta Delivery Time: 05:01 Total Hours of Labor: 7 Non-surgical Procedures: Amniotomy (clear) Laceration: 2nd Degree Repair: 2-0, 3-0, Vicryl Vaginal Needle Count Correct: Yes Vaginal Sweep Performed: Yes EBL: 900 Delivery Events: Retained Placenta Delivery Comment: Pitocin IOL secondary to oligohydramnios. Epidural placed. AROM performed when 3.5cm dilated. Complete dilation at 0352. Pushed for < 30 minutes. over intact perineum, ELHAM presentation at 0425. NO signs of dystocia. No nuchal cord noted. Easy delivery of body and baby placed on maternal abdomen. Cord clamping was delayed x 1 min. Cord then cut and clamped and Cord blood obtained, in addition to cord blood collection for CBR. Small second degree laceration identified and repaired with 3.0 Vicryl. Gentle traction on the cord avulsed the cord. The placenta was than manually removed after the pt self bolusing her epidural. This was challenging as the plane of tissue separation was not obvious and the placenta was quite sticky. The majority of the placenta was removed intact, but US revealed large fragments of placenta still present in the fundus. Numerous attempts of manual removal were made. Sharp curettage with a Julio Cesar's curette was performed under US guidance. Numerous passes were made. Pt became momentarily hypotensive 70s/40s. IV fluid bolus was given. 2 gm of Ancef given IV. Radha Shultz CNM, called to assist with US guidance. 2 more passes with the Julio Cesar's curette, and the endometrial stripe was thin and bleeding was minimal. 1000mcg of misoprostil was placed rectally. Infant was left stable in room with patient, pt's and RN. EBL 900mg. - Medications Labor Augmentation/Induction Methods Used: Pitocin Labor Augmentation/Induction Indication: Other (Specify) (oligohydramnios) Data HERVE: 04/11/19 Gestational Age: 38 week(s) and 5 day(s) Talavera Delivery Date: 04/02/19 Delivery Time: 04:25 Sex of Infant: Female [place] Weight (gm): 2680 g (Leatha) Score (1 Min): 8 (5#13oz) Score (5 Min): 9 ICD10 Worksheet Patient Problems: Problems Problem Status Onset Multigravida of advanced maternal age Acute Oligohydramnios in third trimester Acute atony of uterus with hemorrhage Acute S/P dilatation and curettage Acute First degree perineal laceration Acute Prolonged spontaneous rupture of membranes Acute Retained placenta Acute (spontaneous vaginal delivery) Acute manual extraction of placenta Acute - ICD10 Problem Qualifiers (1) Oligohydramnios in third trimester (2) Multigravida of advanced maternal age Qualifiers: Trimester: third trimester Qualified Code(s): O09.523 - Supervision of elderly multigravida, third trimester (3) S/P dilatation and curettage (4) atony of uterus with hemorrhage
[2019-04-02] MEDS ORDERED: HYDROCORTISONE 0.5% CREAM TP PRN (07:41)
[2019-04-02] MEDS ORDERED: SIMETHICONE 80 MG TAB CHEW PO PRN (07:41)
--- NOTE | 2019-04-02 09:20 | OBPP ---
Progress Note Assessment/Plan: Assessment: 38 yo now , PPD0 s/p complicated by retained placenta (requiring manual extraction and sharp curettage) and PPH (900cc). - Will check Hct in the AM, routine cares for now. - Encouraged aggressive PO hydration, regular diet. - Feels fine otherwise, minimal lochia/bleeding. - Rh pos, Rubella immune. JM Subjective/ Course: Stopped in to see Iraida this AM around Noon. She was quite lightheaded and nearly fainted on the toilet shortly after delivery - but past few hours have been much better. Pain controlled, taking in some water and food, feeling better. BF going well. Objective: 04/01/19 18:00 Patient ABO/Rh O POSITIVE 04/01/19 18:00
[2019-04-02] MEDS: ACETAMINOPHEN 325 MG TAB PO PRN ×2 (13:16→19:25)
[2019-04-02] MEDS: IBUPROFEN 600 MG TAB PO PRN ×2 (13:16→19:25)
[2019-04-02] MEDS: DOCUSATE SODIUM 100 MG CAP PO PRN (19:25)
[2019-04-03] MEDS: ACETAMINOPHEN 325 MG TAB PO PRN ×4 (00:37→19:41)
[2019-04-03] MEDS: IBUPROFEN 600 MG TAB PO PRN ×4 (00:38→19:41)
--- NOTE | 2019-04-03 10:08 | OBPP ---
Progress Note Assessment/Plan: Assessment: ppd# 1 s/p with manual extraction and currettage of uterus for retained placenta breast feeding anemia rh +/RI/GBS - Plan: 04/03/19 10:05 Subjective/ Course: Stopped in to see Iraida this AM around Noon. She was quite lightheaded and nearly fainted on the toilet shortly after delivery - but past few hours have been much better. Pain controlled, taking in some water and food, feeling better. BF going well. 04/03/19 10:06 patient is doing well. pain is well controlled. no further episodes of lightheadeness or dizziness. normal lochia. working on breast feeding. is sore but doing well. ambulating voiding without difficulty. denies headache or changes in vision. Objective: 04/03/19 05:20 Patient ABO/Rh O POSITIVE 04/01/19 18:00 Temp Pulse Resp BP Pulse Ox 36.7 C 73 14 87/58 L 97 04/03/19 09:10 04/03/19 09:10 04/03/19 09:10 04/03/19 09:10 04/03/19 09:10 Physical Exam - Physical Exam Neck: non-tender, full range of motion, supple Respiratory: chest non-tender, lungs clear, normal breath sounds Cardiac/Chest: normal peripheral pulses, regular rate, rhythm Abdomen: normal bowel sounds, non-tender, other (fundus firm and non tender) Extremities: normal range of motion, non-tender, normal inspection, normal capillary refill Skin: normal color, warm/dry Neuro/Psych: no motor/sensory deficits, alert, normal mood/affect, oriented x 3
[2019-04-03] MEDS: DOCUSATE SODIUM 100 MG CAP PO PRN ×2 (10:18→19:40)
[2019-04-03] MEDS: FERRO-SEQUELS 65 MG TAB.ER PO SCH ×2 (10:18→19:40)
--- NOTE | 2019-04-03 11:08 | POSTANESTH ---
Post Anesthetic Evaluation Cardiovascular Status: Normal, Stable Respiratory Status: Normal, Stable Level of Consciousness/Mental Status: Can Participate in Eval Pain Control: Adequate, Prn Tx Ordered Nausea/Vomiting Control: Adequate, Prn Tx Ordered Complications Possibly Related to Anesthesia: None Noted Notes: Pt doing well s/p ALDAIR. Full return of sensory and motor function in lower extremities, no headache, no backache
[2019-04-04] MEDS: IBUPROFEN 600 MG TAB PO PRN ×2 (00:40→08:15)
[2019-04-04] MEDS: ACETAMINOPHEN 325 MG TAB PO PRN ×2 (00:41→08:15)
[2019-04-04 08:15] VITALS: BP 105/67
[2019-04-04] MEDS: FERRO-SEQUELS 65 MG TAB.ER PO SCH (08:15)
--- NOTE | 2019-04-04 10:55 | OBGCSDC ---
General Delivery Information - General Info : 2 Para: 2 Abortions: 0 Type: Vaginal L&D Analgesia/Anesthesia Type: Epidural Admission Date: 04/01/19 Labs: Patient ABO/Rh O POSITIVE 04/01/19 18:00 Hct 25.4 % (38.0-47.0) L 04/03/19 05:20 - Hospital Course Intrapartum: Pt comfortable with epidural. 04/02/19 00:15 : Stopped in to see Iraida this AM around Noon. She was quite lightheaded and nearly fainted on the toilet shortly after delivery - but past few hours have been much better. Pain controlled, taking in some water and food, feeling better. BF going well. 04/03/19 10:06 patient is doing well. pain is well controlled. no further episodes of lightheadeness or dizziness. normal lochia. working on breast feeding. is sore but doing well. ambulating voiding without difficulty. denies headache or changes in vision. Vaginal - Delivery Provider Delivery Physician/CNM: Shyanne Franco - Diagnosis Labor: Induced Rupture of Membranes Type: Artificial Amniotic Fluid Color: Clear Laceration: 2nd Degree Repair: 2-0, 3-0, Vicryl Delivery Events: Retained Placenta - Procedures Non-surgical Procedures: Amniotomy (clear) - Delivery Non-surgical Procedures: Amniotomy (clear) EBL: 900 [place] Data HERVE: 04/11/19 Gestational Age: 39 week(s) and 0 day(s) Talavera Delivery Date: 04/02/19 Delivery Time: 04:25 Sex of Infant: Female Weight (gm): 2680 g (Leatha) Score (1 Min): 8 (5#13oz) Score (5 Min): 9
--- NOTE | 2019-04-04 10:55 | OBPP ---
Progress Note Assessment/Plan: Assessment: 38 yo now , PPD0 s/p complicated by retained placenta (requiring manual extraction and sharp curettage) and PPH (900cc). - Will check Hct in the AM, routine cares for now. - Encouraged aggressive PO hydration, regular diet. - Feels fine otherwise, minimal lochia/bleeding. - Rh pos, Rubella immune. JM Subjective/ Course: Stopped in to see Iraida this AM around Noon. She was quite lightheaded and nearly fainted on the toilet shortly after delivery - but past few hours have been much better. Pain controlled, taking in some water and food, feeling better. BF going well. 04/03/19 10:06 patient is doing well. pain is well controlled. no further episodes of lightheadeness or dizziness. normal lochia. working on breast feeding. is sore but doing well. ambulating voiding without difficulty. denies headache or changes in vision. Objective: 04/03/19 05:20 Patient ABO/Rh O POSITIVE 04/01/19 18:00 Temp Pulse Resp BP Pulse Ox 35.6 C L 84 14 105/67 98 04/04/19 08:05 04/04/19 08:05 04/04/19 08:05 04/04/19 08:05 04/04/19 08:05
== END 2019-04-04 11:47 | disposition home or self-care (01) | DRG 806 ==
LOC: FLD 16:09 → FOB 04-02 12:18
PROVIDERS: ADMIT Hospitalist; ATTEND Hospitalist
PROC: 10907ZC Drainage of Amniotic Fluid, Therapeutic from Products of Conception, Via Natural or Artificial Opening (ICD-10-PCS; principal; 2019-04-01)
PROC: 3E033VJ Introduction of Other Hormone into Peripheral Vein, Percutaneous Approach (ICD-10-PCS; principal; 2019-04-01)
PROC: 10D17Z9 Manual Extraction of Products of Conception, Retained, Via Natural or Artificial Opening (ICD-10-PCS; principal; 2019-04-01)
PROC: 10E0XZZ Delivery of Products of Conception, External Approach (ICD-10-PCS; principal; 2019-04-01)
PROC: 0KQM0ZZ Repair Perineum Muscle, Open Approach (ICD-10-PCS; principal; 2019-04-01)
DX: O41.03X0 Oligohydramnios, third trimester, not applicable or unspecified (principal); O72.0 Third-stage hemorrhage; O70.1 Second degree perineal laceration during delivery; Z3A.39 39 weeks gestation of pregnancy; Z37.0 Single live birth
CPT/HCPCS: J0690; J2370; J2590; J3010; J3105